=== PATIENT | female | born 1945 | race Caucasian/White ===

== ENCOUNTER 2018-02-12 13:37 | Outpatient (CLI) | payer MEDICARE ==
[~2018-02-12 13:37] MED LIST: Iopamidol 370 76% 100 ML VIAL ONE
== END 2018-02-12 13:38 | disposition home or self-care (01) ==
LOC: SCSCT 13:37
PROVIDERS: ATTEND Specialist
DX: E21.3 Hyperparathyroidism, unspecified (principal); E04.1 Nontoxic single thyroid nodule; D35.1 Benign neoplasm of parathyroid gland
CPT/HCPCS: 70492; 82565

== ENCOUNTER 2018-02-26 11:33 | Day surgery (SDC) | payer MEDICARE ==
[2018-02-25 15:30] VITALS: BMI 36.2
[2018-02-26] MEDS ORDERED: Lidocaine 1% w/Epinephrine 1:100K 30 ML VIAL ONE (12:08)
[2018-02-26] MEDS ORDERED: Fentanyl 100 MCG/2 ML VIAL ONE (12:15)
[2018-02-26 12:38] LABS: Hemoglobin 13.2 g/dL (12.0-16.0)
[2018-02-26 12:56] LABS: Anion Gap 12 mmol/L (10-20); BUN (Urea Nitrogen) 16 mg/dL (9.8-20.1); Calc. Creatinine Clearance 87 mL/min (70-130); Calcium 10.7 mg/dL (7.8-10.44); Carbon Dioxide 23 mmol/L (23-31); Chloride 110 mmol/L (98-107); Estimated GFR-MDRD 69; Glucose 99 mg/dL (83-110); Potassium 4.2 mmol/L (3.5-5.1); Sodium 141 mmol/L (136-145)
[2018-02-26] MEDS ORDERED: Hydrocodone-Acetamin 15 ML UDCUP ONE (16:53)
--- NOTE | 2018-02-26 21:51 | OP ---
PREOPERATIVE DIAGNOSIS: Hyperparathyroidism. PROCEDURE PERFORMED: Left neck exploration with removal of parathyroid adenoma. PROCEDURE IN DETAIL: After consent was obtained, the patient was identified, brought to the operatin g room and placed on the table in supine position. General endotracheal anesthesia was obtained. Th e patient was positioned for surgery. The laryngeal nerve monitoring endotracheal tube was placed an d the patient was positioned and prepped for surgery. An incision was made in natural skin crease th rough skin, subcutaneous tissues, and platysma. Subplatysmal flaps were elevated and strap muscles w ere divided in midline. The thyroid was markedly atrophic. A parathyroid adenoma was identified aft er the thyroid was rotated medially and the strap muscles were retracted, it was removed and sent for histologic evaluation, it was consistent with parathyroid gland. We then turned our attention to wo und closure. SurgiSeal was placed in the deep aspect of the wound. Hemostasis was obtained and the wound was closed in layers with the strap muscles being reapproximated and the platysma with absorbab le suture and the skin closed with Prolene. We then awakened the patient and we placed sterile dress ing and took her to the recovery room in stable condition prior to discharge home.
== END 2018-02-26 18:00 | disposition home or self-care (01) ==
LOC: SDC 11:33
PROVIDERS: ATTEND Specialist
PROC: 0GBR0ZZ Excision of Parathyroid Gland, Open Approach (ICD-10-PCS; principal; 2018-02-26)
DX: D35.1 Benign neoplasm of parathyroid gland (principal); E21.3 Hyperparathyroidism, unspecified; E06.3 Autoimmune thyroiditis; I10 Essential (primary) hypertension; M19.90 Unspecified osteoarthritis, unspecified site; F31.9 Bipolar disorder, unspecified; E78.5 Hyperlipidemia, unspecified; E03.9 Hypothyroidism, unspecified; G47.00 Insomnia, unspecified; M85.80 Other specified disorders of bone density and structure, unspecified site; K21.9 Gastro-esophageal reflux disease without esophagitis; D36.7 Benign neoplasm of other specified sites; G62.9 Polyneuropathy, unspecified; Z87.891 Personal history of nicotine dependence; Z79.899 Other long term (current) drug therapy; Z88.0 Allergy status to penicillin; Z88.2 Allergy status to sulfonamides; Z88.8 Allergy status to other drugs, medicaments and biological substances
CPT/HCPCS: 80048; 85014; 85018; 88305; 88331; 93005; 93010; J0131; J2001; J3010

== ENCOUNTER 2018-03-05 13:07 | Day surgery (SDC) | payer MEDICARE ==
[2018-03-05] MEDS ORDERED: EPINEPHrine 1 MG/ML AMP ONE (13:52)
[2018-03-05] MEDS ORDERED: SUGAMMADEX SODIUM 200 MG/2 ML VIAL ONE (13:54)
[2018-03-05] MEDS ORDERED: Midazolam HCl 2 mg/2 ml Vial ONE (13:54)
[2018-03-05] MEDS ORDERED: Fentanyl 100 MCG/2 ML VIAL ONE (13:54)
[2018-03-05] MEDS ORDERED: Lidocaine 1% PF 5 ML VIAL ONE (14:04)
[2018-03-05] MEDS ORDERED: PROPOFOL 200 MG/20 ML VIAL ONE (14:04)
[2018-03-05] MEDS ORDERED: Succinylcholine Chloride 20 MG/ML 10 ml SYRINGE FS ONE (14:04)
[2018-03-05] MEDS ORDERED: Ondansetron HCl/PF 4 MG/2 ML Vial ONE (14:04)
[2018-03-05] MEDS ORDERED: Dexamethasone 20 MG/5 ML VIAL ONE (14:04)
--- NOTE | 2018-03-06 10:45 | OP ---
PREOPERATIVE DIAGNOSES: Left vocal cord paresis, aspiration reflux, laryngospasm. POSTOPERATIVE DIAGNOSES: Left vocal cord paresis, aspiration reflux, laryngospasm. PROCEDURE PERFORMED: Microsuspension laryngoscopy with left vocal cord injection using prolarynx. PROCEDURE IN DETAIL: After consent was obtained, the patient was identified and brought to the opera tin room and placed on the table in supine position. The patient was put to sleep and an operating laryngoscope was placed in supine and suspended from the tray. We then used the operating microscope to visualize the larynx and carefully injected per the larynx lateral to the true cord until the voca l fold was medialized. She had been intubated with a Malika jet ventilating tube, which was then r emoved. The patient was awakened, extubated, and taken to recovery room remained in stable condition prior to discharge home.
--- NOTE | 2018-03-08 01:37 | HP ---
HISTORY OF PRESENT ILLNESS: This is a 72-year-old female that underwent a left parathyroidectomy abo pr 10 days ago. Postoperatively, she complained of hoarseness and a cough. She was returned to the operating room where she evidently underwent vocal cord injection. She continued to cough and had se winnie coughing spells about 3-4 days ago. She has been dyspneic since then seen in local emergency ro om where she had a left pneumothorax. Attempted tube placement was unsuccessful, and she was transfe rred here. PAST MEDICAL HISTORY: Significant for manic-depressive disorder; depression; dyslipidemia; hypothyro idism; recent diagnosis of hyperparathyroidism; arthritis, particularly of the cervical spine. She h as a remote history of rheumatic fever. PAST SURGICAL HISTORY: Includes the recent parathyroidectomy, left knee arthroscopy, some sort of ov ruben procedure, and concomitant appendectomy. Resection of multiple lipomas. SOCIAL HISTORY: She is . She has not smoked in many, many years. 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 MEDICATIONS: Her medications are multiple and include tramadol as needed for pain, Synthroid 88, Medrano ictal 200 mg daily, gabapentin 600 b.i.d., Crestor 10 every other day, mirabegron 25 daily, trazodone 100 mg at bedtime, lithium carbonate 300 mg daily. ALLERGIES: She reports allergies to SULFA, PENICILLIN, and SEROQUEL. PHYSICAL EXAMINATION: GENERAL: Alert, cooperative lady in mild respiratory distress, but able to continuously talk. NECK: She has a minimal range of motion of her neck due to C-spine arthritis. CHEST: Markedly diminished breath sounds on the left anteriorly. No wheezes. ABDOMEN: Obese, nontender. BREASTS: Pendulous, not examined otherwise. EXTREMITIES: No peripheral edema. Chest tube will be placed and then the patient will be hospitalized until her air leak ceases. Her p neumothorax appears to be primarily at the apex suggesting adhesions lower down in the chest.
--- NOTE | 2018-03-08 02:30 | OP ---
PREOPERATIVE DIAGNOSIS: Left pneumothorax. PROCEDURE: Left tube thoracostomy. PROCEDURE IN DETAIL: After prepping and draping, 1% lidocaine was used to infiltrate the skin over t he anterior chest wall in the region of the second or third rib. Due to the patient's pendulous nathanael sts and severe cervical arthritis and inability to lie, less than 45 degrees upright the access was s omewhat compromised. After infiltration with lidocaine, a skin incision was made, tissue was spread. Further lidocaine was used liberally. What was felt to be either the 2nd or 3rd rib was palpated w ith difficulty due to her size and chest was entered with a clamp just above that. A finger was inse rted and there was a free space at that level. A 20 chest tube was placed, but would not advance deonna y far suggesting adhesions. It was secured to the skin, skin incision was closed and post-insertion chest x-ray showed no pneumothorax.
--- NOTE | 2018-03-10 03:20 | CON ---
DATE OF CONSULTATION: 03/09/2018 HISTORY OF PRESENT ILLNESS: Ms. Menjivar is a 72-year-old female said she was in good health until a recent parathyroidectomy. Postoperatively, she noticed her speech had changed, but she was coughing and that she was having episodes of shortness of breath. This was continued since her surgery. She coughed hard enough to end up with a spontaneous pneumothorax for which Dr. Henson has placed and removed the chest tube. I was consulted because of her cough. PAST MEDICAL HISTORY: 1. Remarkable for bipolar illness. 2. History of liver disorder. 3. History of hyperparathyroidism status post parathyroidectomy. Her says she has been healthy. 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 She is a distant smoker. FAMILY HISTORY: Negative for lung disease in early age. SOCIAL HISTORY: Non-smoker, nondrinker. REVIEW OF SYSTEMS: 10 point system review completed, otherwise negative ALLERGIES: She reports allergies to SULFA, PENICILLIN, QUETIAPINE and GANTRISIN. PHYSICAL EXAMINATION: GENERAL: 72-year-old female said she was in good health until a recent parathyroidectomy VITAL SIGNS: She is afebrile, heart rate is 87, respiratory rate 20, oximetry is 94% on room air, blood pressure 168/78. HEENT: Pupils are reactive. Sclerae anicteric. She is not hoarse at this time , although if she has an intermittent significant cough. NECK: Supple. LUNGS: Clear. She is extremely kyphotic. HEART: Regular rhythm. S1 and S2 are normal. ABDOMEN: Soft and nontender. EXTREMITIES: No clubbing, cyanosis, or edema. LABORATORY AND X-RAY FINDINGS: Chest radiograph is hazy at the left base. IMPRESSION: 1. Status post spontaneous pneumothorax with coughing. 2. Coughing paroxysms associated with dyspnea after surgery?, upper airway mediated with upper airway muscle spasm. It sounds like it is an inspiratory issue when she does get short of breath. I doubt she has thromboembolic disease. She is extremely kyphotic which would lead me to believe she would not tolerate much in the way of a pulmonary insult. I do not feel IV antibiotics are indicated, but we will treat it with a quinolone one dose of steroids and nebulizer treatments and Tessalon Perles. Hopefully, we will see gradual improvement of her symptoms. This is a 50-minute consult with greater than 50% of the time spent on unit with coordination of care. MARCIA
== END 2018-03-05 16:48 | disposition home or self-care (01) ==
LOC: SDC 13:07
PROVIDERS: ATTEND Specialist
PROC: 0BJQ3ZZ Inspection of Pleura, Percutaneous Approach (ICD-10-PCS; principal; 2018-03-05)
PROC: 3E0F8GC Introduction of Other Therapeutic Substance into Respiratory Tract, Via Natural or Artificial Opening Endoscopic (ICD-10-PCS; 2018-03-05)
DX: J38.01 Paralysis of vocal cords and larynx, unilateral (principal); J38.5 Laryngeal spasm; J93.9 Pneumothorax, unspecified; K21.9 Gastro-esophageal reflux disease without esophagitis; F31.9 Bipolar disorder, unspecified; E89.2 Postprocedural hypoparathyroidism; M13.88 Other specified arthritis, other site; E78.5 Hyperlipidemia, unspecified; E03.9 Hypothyroidism, unspecified; Z87.891 Personal history of nicotine dependence; Z79.899 Other long term (current) drug therapy; Z88.0 Allergy status to penicillin; Z88.2 Allergy status to sulfonamides; Z88.8 Allergy status to other drugs, medicaments and biological substances
CPT/HCPCS: J0171; J2250; J3010

== ENCOUNTER 2018-03-07 13:49 | Emergency (ER) | payer MEDICARE ==
[2018-03-07 14:27] LABS: #Basophils 0.1 thou/uL (0.0-0.2); #Eosinphils 0.3 thou/uL (0.0-0.7); #Lymphocytes 3.5 thou/uL (1.20-3.40); #Monocytes 1.1 thou/uL (0.11-0.59); #Neutrophils 8.7 thou/uL (1.40-6.50); %Basophils 0.6 % (0.0-1.0); %Eosinophils 2.3 % (0.0-10.0); %Lymphocytes 25.4 % (21.0-51.0); %Monocytes 7.7 % (0.0-10.0); %Neutrophils 63.9 % (42.0-75.0); Hemoglobin 13.2 g/dL (12.0-16.0); Mean Corpuscular HGB CONC 36.1 g/dL (32.0-36.0); Mean Corpuscular Hemoglobin 32.2 pg (27.0-31.0); Mean Corpuscular Volume 89.2 fL (78.0-98.0); Mean Platelet Volume 6.4 fL (7.4-10.4); Platelet Count 294 thou/uL (130-400); White Blood Cell (WBC) Count 13.7 thou/uL (4.8-10.8)
[2018-03-07 14:33] LABS: INR-International Normal Ratio 0.9; Prothrombin Time 11.9 SEC (12.0-14.7)
[2018-03-07 14:34] LABS: PTT 27.5 SEC (22.9-36.1)
[2018-03-07 14:43] LABS: ALT (SGPT) 28 U/L (8-55); AST (SGOT) 22 U/L (5-34); Albumin 4.6 g/dL (3.4-4.8); Alkaline Phosphatase 91 U/L (40-150); Anion Gap 12 mmol/L (10-20); BUN (Urea Nitrogen) 16 mg/dL (9.8-20.1); Bilirubin, Total 0.4 mg/dL (0.2-1.2); Calc. Creatinine Clearance 0 mL/min (70-130); Calcium 11.4 mg/dL (7.8-10.44); Carbon Dioxide 26 mmol/L (23-31); Chloride 107 mmol/L (98-107); Estimated GFR-MDRD 70; Globulin 2.7 g/dL (2.4-3.5); Glucose 96 mg/dL (83-110); Magnesium 2.1 mg/dL (1.6-2.6); Potassium 3.8 mmol/L (3.5-5.1); Protein, Total 7.3 g/dL (6.0-8.3); Sodium 141 mmol/L (136-145)
[2018-03-07] MEDS ORDERED: Fentanyl 100 MCG/2 ML VIAL ONE (15:34)
--- NOTE | 2018-03-07 16:03 | RAD ---
PA AND LATERAL CHEST X-RAY 03/07/18 HISTORY: Shortness of breath for one week. Dyspnea. Thyroidectomy nine days ago. COMPARISON: 03/25/17. FINDINGS: There is a moderate sized left pneumothorax occupying greater than 20% of the volume of the left molina thorax. There is increased opacity at the medial left lung base probably related to compressive atele ctasis portion of the left lower lobe. There are linear densities of the right lung base probably rel ated to mild scarring or atelectasis. Patient is rotated to the right which accentuates the cardiac s ilhouette. Pulmonary vasculature is within normal limits. Degenerative changes are seen in the spine. IMPRESSION: 1. Moderate sized left pneumothorax. 2. Above findings concerning the left sided pneumothorax were discussed with Dr. Pires in the Em ergency Department, 03/07/18 at 1500 hours. 1. POS: [facility]
== END 2018-03-07 17:13 | disposition short-term general hospital (02) ==
LOC: SCSER 13:49
DX: J93.9 Pneumothorax, unspecified (principal); E78.5 Hyperlipidemia, unspecified
CPT/HCPCS: 71046; 80053; 83735; 83880; 84443; 85025; 85610; 85730; 93005; 94760; J3010

== ENCOUNTER 2018-03-24 14:16 | Outpatient (CLI) | payer MEDICARE ==
--- NOTE | 2018-03-24 16:13 | RAD ---
TWO VIEW CHEST: HISTORY: Dyspnea. COMPARISON: One view chest from 03/09/2018. FINDINGS: Mild cardiomegaly again noted. Mild vascular engorgement without congestion or edema. No focal infi ltrate. Degenerative spine changes with mild kyphotic curvature of the thoracic spine. The left-sided chest tube has been removed since the prior study. There is blunting of the left CP a ngle, which may represent small regional left effusion or pleural reaction. No evidence of pneumotho rax. IMPRESSION: Left chest tube has been removed. No acute lung process identified. POS: [facility]
== END 2018-03-24 14:17 | disposition home or self-care (01) ==
LOC: RAD 14:16
PROVIDERS: ATTEND Thoracic Surgery (Cardiothoracic Vascular Surgery)
DX: J93.0 Spontaneous tension pneumothorax (principal); Z98.890 Other specified postprocedural states
CPT/HCPCS: 71046

== ENCOUNTER 2018-06-12 10:15 | Outpatient (CLI) | payer MEDICARE ==
--- NOTE | 2018-06-12 13:29 | RAD ---
PA AND LATERAL CHEST: HISTORY: Dyspnea. COMPARISON: 03/24/2018 FINDINGS: The aorta is tortuous. The lungs are well expanded without focal areas of consolidation, pneumothora yadi, luma pulmonary edema, or pleural effusions. There are degenerative changes in the spine with i ncreased kyphosis. IMPRESSION: No acute process. POS: [facility]
== END 2018-06-12 10:16 | disposition home or self-care (01) ==
LOC: RAD 10:15
PROVIDERS: ATTEND Internal Medicine Critical Care Medicine
DX: R06.00 Dyspnea, unspecified (principal)
CPT/HCPCS: 71046

== ENCOUNTER 2018-07-09 07:02 | Day surgery (SDC) | payer MEDICARE ==
[2018-07-08 16:13] VITALS: BMI 36.8
[2018-07-09 08:16] LABS: Hemoglobin 13.1 g/dL (12.0-16.0)
[2018-07-09 08:35] LABS: Anion Gap 10 mmol/L (10-20); BUN (Urea Nitrogen) 19 mg/dL (9.8-20.1); Calc. Creatinine Clearance 85 mL/min (70-130); Calcium 10.6 mg/dL (7.8-10.44); Carbon Dioxide 27 mmol/L (23-31); Chloride 108 mmol/L (98-107); Estimated GFR-MDRD 66; Glucose 101 mg/dL (83-110); Potassium 3.9 mmol/L (3.5-5.1); Sodium 141 mmol/L (136-145)
[2018-07-09] MEDS ORDERED: EPINEPHrine 1 MG/ML AMP ONE (08:43)
[2018-07-09] MEDS ORDERED: Propofol 500 MG/50 ML VIAL ONE (08:53)
[2018-07-09] MEDS ORDERED: SUGAMMADEX SODIUM 200 MG/2 ML VIAL ONE (08:54)
[2018-07-09] MEDS ORDERED: Fentanyl 100 MCG/2 ML VIAL ONE ×2 (08:59)
[2018-07-09] MEDS ORDERED: Glycopyrrolate 0.2 MG/ML 5 ML SYRINGE ONE ×3 (09:05→12:57)
[2018-07-09] MEDS ORDERED: Midazolam HCl 2 mg/2 ml Vial ONE (09:05)
[2018-07-09] MEDS ORDERED: Ondansetron PF 4 MG/2 ML Vial ONE (12:57)
[2018-07-09] MEDS ORDERED: PROPOFOL 200 MG/20 ML VIAL ONE (12:57)
[2018-07-09] MEDS ORDERED: Lidocaine 1% PF 5 ML VIAL ONE (12:57)
--- NOTE | 2018-07-09 14:31 | EKG ---
Test Reason : PREOP Blood Pressure : / mmHG Vent. Rate : 056 BPM Atrial Rate : 056 BPM P-R Int : 166 ms QRS Dur : 100 ms QT Int : 444 ms P-R-T Axes : 046 -01 006 degrees QTc Int : 428 ms Sinus bradycardia with sinus arrhythmia Moderate voltage criteria for LVH, may be normal variant Borderline ECG When compared with ECG of 07-MAR-2018 20:22, No significant change was found Confirmed by FANTA SMITH, . S. ([id number]) on 07/09/2018 2:31:15 PM Referred By: JORGE Confirmed By:DR. Rigoberto JEWELL MD
--- NOTE | 2018-07-13 09:38 | OP ---
DATE OF PROCEDURE: 07/09/2018 PREOPERATIVE DIAGNOSES: Hoarseness, aspiration, left vocal cord paralysis. POSTOPERATIVE DIAGNOSES: Hoarseness, aspiration, left vocal cord paralysis. PROCEDURES PERFORMED: Microsuspension laryngoscopy with vocal cord injection using Prolaryn Plus. PROCEDURE IN DETAIL: After consent was obtained, the patient was identified. She was then brought to the operating room and placed on the operating table in supine position was obtained. The patient was placed under anesthesia and positioned for laryngoscopy. Suspension laryngoscopy was achieved and the larynx was visualized. Using the 30-degree telescope, we were able to fully visualize the larynx. She underwent a series of 3 injections to medialize the left vocal fold with care not to compromise the airway. There were no complications. The patient was awakened, extubated, and taken to recovery room in stable condition. Job ID: [id number]
== END 2018-07-09 11:50 | disposition home or self-care (01) ==
LOC: SDC 07:02
PROVIDERS: ATTEND Specialist
PROC: 3E0F8GC Introduction of Other Therapeutic Substance into Respiratory Tract, Via Natural or Artificial Opening Endoscopic (ICD-10-PCS; principal; 2018-07-09)
DX: J38.01 Paralysis of vocal cords and larynx, unilateral (principal); M19.90 Unspecified osteoarthritis, unspecified site; F31.9 Bipolar disorder, unspecified; E78.5 Hyperlipidemia, unspecified; E03.9 Hypothyroidism, unspecified; G47.00 Insomnia, unspecified; R22.0 Localized swelling, mass and lump, head; M85.80 Other specified disorders of bone density and structure, unspecified site; K21.9 Gastro-esophageal reflux disease without esophagitis; Z79.899 Other long term (current) drug therapy; Z88.0 Allergy status to penicillin; Z88.2 Allergy status to sulfonamides; Z88.8 Allergy status to other drugs, medicaments and biological substances
CPT/HCPCS: 36415; 80048; 85014; 85018; 93005; 93010; J0171; J2001; J2250; J2405; J2704; J3010

== ENCOUNTER 2019-05-06 09:13 | Outpatient (CLI) | payer MEDICARE ==
--- NOTE | 2019-05-06 10:16 | RAD ---
TWO VIEWS OF THE CHEST: COMPARISON: 06/12/2018. HISTORY: Dyspnea. FINDINGS: Two views of the chest show normal sized cardiomediastinal silhouette. There is no evidence of consol idation, mass, or pleural effusion. Degenerative changes are seen in the spine. IMPRESSION: No evidence of acute cardiopulmonary disease. POS: [facility]
== END 2019-05-06 09:14 | disposition home or self-care (01) ==
LOC: RAD 09:13
PROVIDERS: ATTEND Internal Medicine Critical Care Medicine
DX: R06.00 Dyspnea, unspecified (principal)
CPT/HCPCS: 71046

== ENCOUNTER 2021-11-12 18:20 | Inpatient (IN) | payer MEDICARE ==
[2021-11-12 20:04] LABS: #Eosinphils 0.1 thou/uL (0.0-0.7); #Lymphocytes 2.1 thou/uL (1.20-3.40); #Monocytes 1.2 thou/uL (0.11-0.59); #Neutrophils 8.1 thou/uL (1.40-6.50); %Basophils 0.1 % (0.0-1.0); %Eosinophils 0.7 % (0.0-10.0); %Lymphocytes 18.2 % (21.0-51.0); %Monocytes 10.6 % (0.0-10.0); %Neutrophils 70.4 % (42.0-75.0); Hemoglobin 12.6 g/dL (12.0-16.0); Mean Corpuscular HGB CONC 32.4 g/dL (32.0-36.0); Mean Corpuscular Hemoglobin 32.9 pg (27.0-31.0); Platelet Count 309 thou/uL (130-400); RBC Distribution Width 12.2 % (11.5-14.5); Red Blood Cell (RBC) Count 3.84 mill/uL (4.20-5.40); White Blood Cell (WBC) Count 11.5 thou/uL (4.8-10.8)
[2021-11-12 20:26] LABS: ALT (SGPT) 42 U/L (8-55); AST (SGOT) 35 U/L (5-34); Albumin 4.1 g/dL (3.4-4.8); Alkaline Phosphatase 70 U/L (40-110); Anion Gap 14 mmol/L (10-20); BUN (Urea Nitrogen) 13 mg/dL (9.8-20.1); Bilirubin, Total 0.3 mg/dL (0.2-1.2); Calc. Creatinine Clearance 0 mL/min (70-130); Calcium 10.6 mg/dL (7.8-10.44); Carbon Dioxide 26 mmol/L (23-31); Chloride 103 mmol/L (98-107); Globulin 3.2 g/dL (2.4-3.5); Glucose 108 mg/dL (83-110); Potassium 4.7 mmol/L (3.5-5.1); Protein, Total 7.3 g/dL (5.8-8.1); Sodium 138 mmol/L (136-145)
[2021-11-12] MEDS ORDERED: cefTRIAXone\\ROCEPHIN 2 GM VIAL ONE (22:49)
[2021-11-12] MEDS ORDERED: methylPREDNISolone Sod Succ/PF 125 MG/2 ML VIAL ONE (22:49)
[2021-11-12] MEDS ORDERED: Azithromycin 500 MG in Sodium Chloride 0.9% 250 ML 250 ML IVPB SCH (23:15)
[2021-11-12] MEDS ORDERED: Ondansetron PF 4 MG/2 ML Vial IVP PRN (23:45)
[2021-11-12] MEDS ORDERED: Ondansetron ODT 4 MG TAB SL PRN (23:45)
[2021-11-12] MEDS ORDERED: Acetaminophen 325 MG TAB PO PRN (23:45)
[2021-11-13 00:05] LABS: SARS-CoV-2 NAA Rapid Test Not Detected (NotDetected)
[2021-11-13] MEDS ORDERED: Bisacodyl 5 MG TAB PO PRN (00:17)
[2021-11-13] MEDS ORDERED: Senokot S 8.6-50 MG TAB PO PRN (00:17)
[2021-11-13] MEDS ORDERED: Melatonin 3 MG TAB PO PRN (00:23)
[2021-11-13 00:28] VITALS: BMI 39.3
[2021-11-13] MEDS ORDERED: Enoxaparin Sodium 40 MG/0.4 ML SYRINGE SC SCH (00:30)
[2021-11-13] MEDS ORDERED: hydrALAZINE 20 MG/ML VIAL SLOW IVP PRN (00:45)
[2021-11-13] MEDS ORDERED: Ondansetron PF 4 MG/2 ML Vial IVP PRN (01:12)
[2021-11-13] MEDS ORDERED: Pantoprazole 40 MG VIAL IVP SCH (01:30)
[2021-11-13] MEDS: Azithromycin 500 MG in Sodium Chloride 0.9% 250 ML 250 ML IVPB SCH (01:30)
[2021-11-13] MEDS ORDERED: Oseltamivir 75 MG CAP PO SCH (03:15)
[2021-11-13 03:57] LABS: Bacteria/HPF None Seen HPF (None Seen); Bilirubin Negative (Negative); Blood, Urine Negative (Negative); Clarity Clear (Clear); Glucose, Urine (Dipstick) >=1000 mg/dL (Negative); Ketone, Urine Negative (Negative); Leukocyte Negative Leu/uL (Negative); Nitrite Negative (Negative); Protein, Urine (Dipstick) Negative (Neg-Trace); RBC/HPF 0-3 HPF (0-3); Specific Gravity, Urine 1.014 (1.002-1.036); Squamous Epithelial 0-3 HPF (0-3); Urobilinogen Normal mg/dL (Less than 2); WBC/HPF 0-3 HPF (0-3); pH, Urine 6.5 (5.0-9.0)
[2021-11-13 03:59] LABS: Urine Culture Reflex No No
[2021-11-13 04:10] LABS: Legionella Urinary Ag Negative (Negative)
[2021-11-13] MEDS: Levothyroxine Sodium 88 MCG TAB PO SCH (05:07)
[2021-11-13] MEDS: Oseltamivir 75 MG CAP PO SCH ×2 (09:45→20:48)
[2021-11-13] MEDS: methylPREDNISolone Sod Succ 40 MG VIAL IVP SCH ×2 (12:26→17:03)
[2021-11-13] MEDS: Gabapentin 300 MG CAP PO SCH (20:48)
[2021-11-13] MEDS: traZODone HCl 50 MG TAB PO SCH (20:48)
[2021-11-13] MEDS: Enoxaparin Sodium 40 MG/0.4 ML SYRINGE SC SCH (20:49)
[2021-11-13] MEDS ORDERED: cefTRIAXone\\ROCEPHIN 1 GM in Sodium Chloride 0.9% 100 ML IVPB SCH (21:00)
[2021-11-14] MEDS ORDERED: Benzonatate 100 MG CAP PO PRN ×2 (00:09→09:54)
[2021-11-14] MEDS: methylPREDNISolone Sod Succ 40 MG VIAL IVP SCH ×4 (00:25→18:16)
[2021-11-14] MEDS: Guaifenesin DM 100-10/5 ML UDCUP PO PRN (00:54)
[2021-11-14] MEDS: Azithromycin 500 MG in Sodium Chloride 0.9% 250 ML 250 ML IVPB SCH (00:54)
[2021-11-14] MEDS: Levothyroxine Sodium 88 MCG TAB PO SCH (05:18)
[2021-11-14 06:14] LABS: Band 11 % (5-11); Hemoglobin 12.3 g/dL (12.0-16.0); Lymphocytes 10 % (21-51); MDiff Complete? YES; Macrocytosis SLIGHT = 6-15 cells (100X) (0-5/hpf); Mean Corpuscular HGB CONC 32.3 g/dL (32.0-36.0); Mean Corpuscular Hemoglobin 32.9 pg (27.0-31.0); Mean Platelet Volume 6.1 fL (7.4-10.4); Monocytes 18 % (0-10); Neutrophil 61 % (42-75); Platelet Count 402 thou/uL (130-400); Platelet Morphology Comment Appears Increased; RBC Distribution Width 12.1 % (11.5-14.5); Red Blood Cell (RBC) Count 3.74 mill/uL (4.20-5.40); White Blood Cell (WBC) Count 19.8 thou/uL (4.8-10.8)
[2021-11-14 06:22] LABS: ALT (SGPT) 58 U/L (8-55); AST (SGOT) 47 U/L (5-34); Albumin 4.1 g/dL (3.4-4.8); Alkaline Phosphatase 76 U/L (40-110); Anion Gap 16 mmol/L (10-20); BUN (Urea Nitrogen) 20 mg/dL (9.8-20.1); Bilirubin, Total 0.2 mg/dL (0.2-1.2); Calc. Creatinine Clearance 95 mL/min (70-130); Calcium 10.2 mg/dL (7.8-10.44); Carbon Dioxide 22 mmol/L (23-31); Chloride 104 mmol/L (98-107); Globulin 3.3 g/dL (2.4-3.5); Glucose 220 mg/dL (83-110); Protein, Total 7.4 g/dL (5.8-8.1); Sodium 138 mmol/L (136-145)
[2021-11-14] MEDS ORDERED: Pantoprazole 40 MG VIAL IVP SCH (09:00)
[2021-11-14] MEDS: Oseltamivir 75 MG CAP PO SCH ×2 (09:44→20:52)
[2021-11-14] MEDS ORDERED: guaiFENesin/Codeine 200 mg/20 mg 10 ml Cup PO PRN (09:55)
[2021-11-14] MEDS ORDERED: Benzonatate 100 MG CAP PO SCH (19:00)
[2021-11-14] MEDS: traZODone HCl 50 MG TAB PO SCH (20:51)
[2021-11-14] MEDS: Gabapentin 300 MG CAP PO SCH (20:51)
[2021-11-14] MEDS: Enoxaparin Sodium 40 MG/0.4 ML SYRINGE SC SCH (20:52)
[2021-11-15] MEDS: methylPREDNISolone Sod Succ 40 MG VIAL IVP SCH ×4 (01:12→18:40)
[2021-11-15] MEDS: Azithromycin 500 MG in Sodium Chloride 0.9% 250 ML 250 ML IVPB SCH (01:13)
[2021-11-15] MEDS: Benzonatate 100 MG CAP PO SCH ×3 (03:37→20:28)
[2021-11-15] MEDS: Levothyroxine Sodium 88 MCG TAB PO SCH (06:05)
[2021-11-15] MEDS: Guaifenesin DM 100-10/5 ML UDCUP PO PRN (08:29)
[2021-11-15] MEDS: Oseltamivir 75 MG CAP PO SCH ×2 (08:30→20:29)
[2021-11-15] MEDS: Enoxaparin Sodium 40 MG/0.4 ML SYRINGE SC SCH (20:28)
[2021-11-15] MEDS: Gabapentin 300 MG CAP PO SCH (20:28)
[2021-11-15] MEDS: traZODone HCl 50 MG TAB PO SCH (20:29)
[2021-11-16] MEDS: methylPREDNISolone Sod Succ 40 MG VIAL IVP SCH ×3 (00:22→12:38)
[2021-11-16] MEDS: Azithromycin 500 MG in Sodium Chloride 0.9% 250 ML 250 ML IVPB SCH (00:22)
[2021-11-16] MEDS: Guaifenesin DM 100-10/5 ML UDCUP PO PRN (00:40)
[2021-11-16] MEDS: Benzonatate 100 MG CAP PO SCH ×2 (06:19→11:30)
[2021-11-16] MEDS: Levothyroxine Sodium 88 MCG TAB PO SCH (06:19)
[2021-11-16] MEDS: Oseltamivir 75 MG CAP PO SCH (09:24)
[2021-11-16 16:38] VITALS: BP 137/76; TEMP 98.1
[2021-11-16] MEDS ORDERED: methylPREDNISolone Sod Succ 40 MG VIAL IVP SCH (18:00)
== END 2021-11-16 19:43 | disposition home health service (06) | DRG 193 ==
LOC: ERS 18:20 → T4-A 22:39 → OBSVTOIN 11-13 10:15
PROVIDERS: ADMIT Internal Medicine; ATTEND Family Medicine
PROC: 8E0ZXY6 Isolation (ICD-10-PCS; principal; 2021-11-13)
DX: J10.1 Influenza due to other identified influenza virus with other respiratory manifestations (principal); J96.01 Acute respiratory failure with hypoxia; J20.9 Acute bronchitis, unspecified; E03.9 Hypothyroidism, unspecified; G47.00 Insomnia, unspecified; E78.5 Hyperlipidemia, unspecified; E66.9 Obesity, unspecified; K21.9 Gastro-esophageal reflux disease without esophagitis; Z96.652 Presence of left artificial knee joint; Z20.822 Contact with and (suspected) exposure to COVID-19; Z87.01 Personal history of pneumonia (recurrent); Z88.0 Allergy status to penicillin; Z88.8 Allergy status to other drugs, medicaments and biological substances; Z88.2 Allergy status to sulfonamides; Z79.899 Other long term (current) drug therapy; Z79.891 Long term (current) use of opiate analgesic; Z79.890 Hormone replacement therapy; Z86.16 Personal history of COVID-19; Z90.49 Acquired absence of other specified parts of digestive tract; Z87.891 Personal history of nicotine dependence; Z68.39 Body mass index [BMI] 39.0-39.9, adult; R53.83 Other fatigue
CPT/HCPCS: 36415; 36416; 80053; 80178; 81001; 83605; 83880; 84443; 84484; 85025; 87040; 87086; 87899; 93005; 94640; 94760; 94799; 96372; 96374; 96375; 99213; C9113; G0378; G0463; J0456; J0696; J1650; J2920; J2930; J7050; J7620; U0003; U0005

== ENCOUNTER → 2023-04-09 | Day surgery (SDC) | payer MEDICARE | LOC: NM 09:05 | PROVIDERS: ATTEND Otolaryngology Plastic Surgery within the Head & Neck | DX: R49.0 Dysphonia (principal) | CPT/HCPCS: 78072; A9500 ==

== ENCOUNTER 2023-04-18 10:03 | Outpatient (CLI) | payer MEDICARE ==
[2023-04-18] MEDS ORDERED: Iopamidol 370 76% 100 ML VIAL ONE (12:43)
== END 2023-04-18 10:04 | disposition home or self-care (01) ==
LOC: CT 10:03
PROVIDERS: ATTEND Otolaryngology Plastic Surgery within the Head & Neck
DX: R49.0 Dysphonia (principal); K11.8 Other diseases of salivary glands
CPT/HCPCS: 70492; 82565; Q9967

== ENCOUNTER 2025-03-30 15:19 | Outpatient (CLI) | payer MEDICARE | END 2025-03-30 15:20 | disposition home or self-care (01) | LOC: RAD 15:19 | PROVIDERS: ATTEND Internal Medicine Critical Care Medicine | DX: R06.00 Dyspnea, unspecified (principal) | CPT/HCPCS: 71046 ==